=== PATIENT | female | born 1955 | race Caucasian/White ===

== ENCOUNTER 2021-02-25 | Outpatient (CLI) | payer MEDICARE | END 2021-02-25 14:01 | disposition home or self-care (01) | DX: Z12.31 Encounter for screening mammogram for malignant neoplasm of breast (principal); Z80.3 Family history of malignant neoplasm of breast | CPT/HCPCS: 77063; 77067 ==

== ENCOUNTER 2022-07-06 10:21 | Outpatient (CLI) | payer MEDICARE | END 2022-07-06 10:22 | disposition home or self-care (01) | LOC: BICMAMMO 10:21 | PROVIDERS: ATTEND Nurse Practitioner Adult Health | DX: Z12.31 Encounter for screening mammogram for malignant neoplasm of breast (principal); Z13.820 Encounter for screening for osteoporosis; Z78.0 Asymptomatic menopausal state; M85.851 Other specified disorders of bone density and structure, right thigh; M85.852 Other specified disorders of bone density and structure, left thigh; Z80.3 Family history of malignant neoplasm of breast | CPT/HCPCS: 77063; 77067; 77080 ==

== ENCOUNTER 2022-11-14 09:58 | Day surgery (SDC) | payer MEDICARE ==
[2022-11-11 09:22] VITALS: BMI 28.3
[2022-11-14] MEDS ORDERED: Midazolam HCl 2 mg/2 ml Vial ONE (10:22)
[2022-11-14] MEDS ORDERED: Famotidine/PF 20 mg/2ml Vial ONE (10:22)
[2022-11-14] MEDS ORDERED: PROPOFOL 200 MG/20 ML VIAL ONE (11:30)
[2022-11-14] MEDS ORDERED: Ondansetron PF 4 MG/2 ML Vial ONE (11:30)
[2022-11-14] MEDS ORDERED: PHENYLEPHRINE-NS 100 MCG/ML 10 ML SYRINGE ONE (11:30)
[2022-11-14] MEDS ORDERED: Lidocaine 1% PF 5 ML VIAL ONE (11:30)
== END 2022-11-14 14:09 | disposition home or self-care (01) ==
LOC: SDC/OP 09:58
PROVIDERS: ATTEND Nurse Practitioner Adult Health
DX: M50.11 Cervical disc disorder with radiculopathy, high cervical region (principal); M50.122 Cervical disc disorder at C5-C6 level with radiculopathy; M47.22 Other spondylosis with radiculopathy, cervical region; M48.02 Spinal stenosis, cervical region; M47.24 Other spondylosis with radiculopathy, thoracic region; M51.36 Other intervertebral disc degeneration, lumbar region; M47.816 Spondylosis without myelopathy or radiculopathy, lumbar region; M48.061 Spinal stenosis, lumbar region without neurogenic claudication; E03.9 Hypothyroidism, unspecified; E78.5 Hyperlipidemia, unspecified; F40.240 Claustrophobia; Z86.16 Personal history of COVID-19; Z79.890 Hormone replacement therapy; Z79.899 Other long term (current) drug therapy; Z88.5 Allergy status to narcotic agent
CPT/HCPCS: 72141; 72146; 72148; J2250; J2405; J2704; S0028

== ENCOUNTER 2023-05-03 17:00 | Outpatient (CLI) | payer MEDICARE | END 2023-05-03 17:01 | disposition home or self-care (01) | LOC: SLEEPLAB 17:00 | PROVIDERS: ATTEND Physician Assistant | DX: G47.33 Obstructive sleep apnea (adult) (pediatric) (principal); F41.9 Anxiety disorder, unspecified; F32.A Depression, unspecified; E66.9 Obesity, unspecified; R06.83 Snoring; R53.83 Other fatigue; G31.84 Mild cognitive impairment of uncertain or unknown etiology; Z68.30 Body mass index [BMI] 30.0-30.9, adult | CPT/HCPCS: 95811 ==

== ENCOUNTER 2023-07-21 13:56 | Outpatient (CLI) | payer MEDICARE | END 2023-07-21 13:57 | disposition home or self-care (01) | LOC: BICMAMMO 13:56 | PROVIDERS: ATTEND Physician Assistant | DX: Z12.31 Encounter for screening mammogram for malignant neoplasm of breast (principal); Z80.3 Family history of malignant neoplasm of breast | CPT/HCPCS: 77063; 77067 ==

== ENCOUNTER 2024-08-02 13:03 | Outpatient (CLI) | payer MEDICARE | END 2024-08-02 13:04 | disposition home or self-care (01) | LOC: BICMAMMO 13:03 | PROVIDERS: ATTEND Physician Assistant | DX: Z12.31 Encounter for screening mammogram for malignant neoplasm of breast (principal); Z80.3 Family history of malignant neoplasm of breast | CPT/HCPCS: 77063; 77067 ==